=== PATIENT | male | born 1985 | race American Indian/Alaskan Native ===

== ENCOUNTER 2016-12-29 23:17 | Emergency (ER) | payer SELFPAY ==
[2016-12-30] MEDS ORDERED: PEPCID IV ONE (02:50)
[2016-12-30] MEDS ORDERED: BENADRYL IV ONE (02:50)
--- NOTE | 2016-12-30 03:31 | Emergency Department Report ---
HPI - General Chief Complaint: Allergic Reaction Time Seen by Provider: 12/30/16 02:40 - HPI HPI: 31-year-old male presents today complaining of hives, lip swelling and throat swelling 5 hours. Patient states that he had chicken wings 6 hours ago at a new restaurant. Positive for pruritus. He took Benadryl without much relief. Denies history of allergies. Denies difficulty breathing. Positive for difficulty in swallowing. Denies fever, chills, chest pain, shortness of breath , abdominal pain. ED Past Medical Hx - Past Medical History Previous Medical History?: No - Surgical History Past Surgical History?: No - Social History Smoking Status: Current Every Day Smoker Substance Use Type: Alcohol, Marijuana - Medications Home Medications: Home Medications Medication Instructions Recorded Confirmed Last Taken Type Ibuprofen [Motrin] 800 mg PO Q8HR PRN #30 tablet 03/14/16 Unknown Rx traMADol [Ultram 50 MG tab] 50 mg PO Q6HR PRN #20 tablet 03/14/16 Unknown Rx Diphenhydramine HCl [Benadryl 25 mg PO Q6H #20 tablet 12/30/16 Unknown Rx Allergy TAB] Prednisone [predniSONE 10 mg 10 mg PO .TAPER #1 tab.ds.pk 12/30/16 Unknown Rx (6-Day Pack, 21 Tabs)] ED Review of Systems ROS: Stated complaint: RASH/SWOLLEN LIPS/ITCHING Other details as noted in HPI Constitutional: denies: chills, fever, malaise Eyes: denies: eye pain ENT: denies: ear pain, throat pain, congestion Respiratory: denies: cough, shortness of breath, wheezing Cardiovascular: denies: chest pain, palpitations Endocrine: no symptoms reported Gastrointestinal: denies: abdominal pain, nausea, vomiting Skin: rash, pruritus Neurological: denies: headache, weakness Physical Exam - Physical Exam Vital Signs: Vital Signs 12/29/16 23:27 Temperature 98.2 F Pulse Rate 100 H Respiratory 20 Rate Blood Pressure 130/83 O2 Sat by Pulse 98 Oximetry Physical Exam: GENERAL: The patient is well-developed and well-nourished. Patient is in NAD. SKIN: Erythematous, transient, pruritic wheal-like rash noted over both upper and lower extremities as well as trunk. HEAD: Normocephalic. Atraumatic. EYES: PERRL. NOSE: Normal nasal mucosa with no nasal discharge. THROAT: No erythema, swelling or exudates. NECK: Supple, nontender, without lymphadenopathy. No meningitic signs are noted. CHEST/LUNGS: Clear to auscultation throughout. HEART/CARDIOVASCULAR: Regular rate and rhythm. No murmurs, rubs or gallops. ABDOMEN: Abdomen is soft, nontender. Bowel sounds normoactive. No guarding or rebound tenderness. EXTREMITIES: Peripheral pulses intact. Capillary refill less than 2 seconds. NEURO: Alert and oriented x 3. Normal gait. ED Course Vital Signs 12/29/16 23:27 Temperature 98.2 F Pulse Rate 100 H Respiratory 20 Rate Blood Pressure 130/83 O2 Sat by Pulse 98 Oximetry ED Medical Decision Making - Lab Data Vital Signs 12/29/16 12/30/16 23:27 03:55 Temperature 98.2 F 98 F Pulse Rate 100 H 83 Respiratory 20 18 Rate Blood Pressure 130/83 Blood Pressure 147/88 [Left] O2 Sat by Pulse 98 100 Oximetry - Medical Decision Making 31-year-old male presents today with urticarial rash to his trunk, upper and lower extremities. Patient was given Benadryl, Pepcid, Solu-Medrol and reported symptomatic relief post-meds. Patient is in no acute distress at this time. He will be discharged home and is encouraged to follow up with a primary care provider. He will be sent home on Benadryl and steroid pack and is encouraged to return to the emergency room for any worsening symptoms. Critical care attestation.: If time is entered above; I have spent that time in minutes in the direct care of this critically ill patient, excluding procedure time. ED Disposition Clinical Impression: Urticaria Allergic reaction Qualifiers: Encounter type: initial encounter Qualified Code(s): T78.40XA - Allergy, unspecified, initial encounter Disposition: DISCHARGED TO HOME OR SELFCARE Is pt being admited?: No Does the pt Need Aspirin: No Condition: Stable Instructions: Urticaria (ED), Food Allergy (ED), Anaphylaxis (ED), Allergies ( ED) Additional Instructions: Follow with primary care provider. Return to the emergency department if symptoms worsen. Prescriptions: Diphenhydramine HCl [Benadryl Allergy TAB] 25 mg PO Q6H #20 tablet Prednisone [predniSONE 10 mg (6-Day Pack, 21 Tabs)] 10 mg PO .TAPER #1 tab.ds.pk Referrals: PRIMARY CARE, [Primary Care Provider] - 3-5 Days [facility] [Outside] - 3-5 Days Forms: Work/School Release Form(ED) Time of Disposition: 03:53
[2016-12-30 03:56] VITALS: BP 147/88
== END 2016-12-30 04:06 | disposition home or self-care (01) ==
LOC: ED 23:17
DX: L50.8 Other urticaria (principal); T78.1XXA Other adverse food reactions, not elsewhere classified, initial encounter; F17.200 Nicotine dependence, unspecified, uncomplicated; F12.10 Cannabis abuse, uncomplicated; X58.XXXA Exposure to other specified factors, initial encounter; Y93.89 Activity, other specified; Y99.8 Other external cause status; Y92.89 Other specified places as the place of occurrence of the external cause
CPT/HCPCS: 96374; 96375; 99282; J1200; J2930